=== PATIENT | female | born 1965 | race African-American/Black ===

== ENCOUNTER 2022-04-07 13:28 | Emergency (ER) | payer MEDICARE ==
[~2022-04-07] VITALS: Ht 167.6 cm; Wt 80.0 kg
[2022-04-07] MEDS ORDERED: LORAZEPAM 1MG TABLET PO ONE (14:00)
[2022-04-07 14:59] LABS: BASOPHILS % 0.5 % (0.0-2.0); EOSINOPHILS % 2.9 % (0.0-5.0); HEMATOCRIT. 37.4 % (36.0-48.0); HEMOGLOBIN. 12.4 g/dL (12.0-16.0); LYMPHOCYTES % 32.9 % (20.0-50.0); MEAN CORPUSCULAR HEMOGLOBIN 30.7 pg (28.0-32.0); MEAN CORPUSCULAR VOLUME 92.9 fL (81.0-99.0); MEAN PLATELET VOLUME 7.4 fl (7.4-10.4); MONOCYTES % 6.6 % (2.0-8.0); NEUTROPHILS % 57.1 % (40.0-76.0); PLATELET 316 x1000/uL (130-400); RED BLOOD CELL COUNT 4.03 mill/uL (4.2-5.4); RED CELL DISTRIBUTION WIDTH 13.8 % (11.6-14.6)
[2022-04-07 15:06] LABS: CHLORIDE 108 mEq/L (98-107)
[2022-04-07 15:15] LABS: ETHANOL BLOOD < 10 mg/dL
[2022-04-07 16:46] LABS: CLARITY URINE CLEAR (CLEAR); COLOR URINE YELLOW (YELLOW); KETONES URINE NEGATIVE (NEGATIVE); LEUKOCYTE ESTERASE URINE 1+ (NEGATIVE); NITRITE URINE NEGATIVE (NEGATIVE); OCCULT BLOOD URINE NEGATIVE (NEGATIVE); PROTEIN URINE TRACE (NEGATIVE); SPECIFIC GRAVITY URINE 1.013 (1.005-1.030); UROBILINOGEN URINE 0.2 E.U./dL (0.2-1.0)
[2022-04-07 17:03] LABS: *AMPHETAMINES SCREEN URINE NEGATIVE (NEGATIVE); *BARBITURATES SCREEN URINE NEGATIVE (NEGATIVE); *BENZODIAZEPINES SCREEN URINE NEGATIVE (NEGATIVE); *COCAINE SCREEN URINE NEGATIVE (NEGATIVE); CANNABINOID URINE SCREEN NEGATIVE (NEGATIVE); METHADONE URINE SCREEN NEGATIVE (NEGATIVE); OPIATES URINE SCREEN NEGATIVE (NEGATIVE); PHENCYCLIDINE URINE SCREEN NEGATIVE (NEGATIVE)
[2022-04-07] MEDS: CEPHALEXIN 250MG CAPSULE PO SCH (19:10)
[2022-04-08] MEDS ORDERED: LORAZEPAM 1MG TABLET PO ONE (04:45)
[2022-04-08] MEDS ORDERED: HALOPERIDOL LACTATE 5MG/ML VIAL IM NR (05:00)
[2022-04-08 06:00] VITALS: BP 119/59
[2022-04-08] MEDS: CEPHALEXIN 250MG CAPSULE PO SCH (08:57)
== END 2022-04-08 11:43 | disposition home or self-care (01) ==
LOC: ER 13:48
DX: F32.A Depression, unspecified (principal); N39.0 Urinary tract infection, site not specified; R45.851 Suicidal ideations; R45.850 Homicidal ideations; F43.10 Post-traumatic stress disorder, unspecified; F12.10 Cannabis abuse, uncomplicated; F17.210 Nicotine dependence, cigarettes, uncomplicated; F10.129 Alcohol abuse with intoxication, unspecified; Y90.0 Blood alcohol level of less than 20 mg/100 ml; Z20.822 Contact with and (suspected) exposure to COVID-19; Z59.00 Homelessness unspecified
CPT/HCPCS: 36415; 80053; 80305; 80320; 81003; 85025; 87426; 99285; C9803; J1630; G0480

== ENCOUNTER 2022-04-09 19:36 | Emergency (ER) | payer BC, MEDICARE ==
[~2022-04-09] VITALS: Ht 170.2 cm; Wt 68.0 kg
[2022-04-09] MEDS ORDERED: DIPHENHYDRAMINE 50MG/ML VIAL IM STA (21:53)
[2022-04-09] MEDS ORDERED: LORAZEPAM 2MG/ML CPJ IM STA (21:53)
[2022-04-09] MEDS ORDERED: OLANZAPINE 10 MG/VIAL IM STA (21:53)
[2022-04-09 22:07] LABS: BASOPHILS % 0.6 % (0.0-2.0); EOSINOPHILS % 2.1 % (0.0-5.0); LYMPHOCYTES % 44.7 % (20.0-50.0); MEAN CORPUSCULAR HEMOGLOBIN 30.5 pg (28.0-32.0); MEAN CORPUSCULAR VOLUME 93.8 fL (81.0-99.0); MEAN PLATELET VOLUME 7.5 fl (7.4-10.4); NEUTROPHILS % 44.6 % (40.0-76.0); PLATELET 281 x1000/uL (130-400); RED BLOOD CELL COUNT 3.94 mill/uL (4.2-5.4); RED CELL DISTRIBUTION WIDTH 13.8 % (11.6-14.6)
[2022-04-09 22:12] LABS: CHLORIDE 106 mEq/L (98-107); CLARITY URINE CLEAR (CLEAR); COLOR URINE YELLOW (YELLOW); KETONES URINE NEGATIVE (NEGATIVE); LEUKOCYTE ESTERASE URINE TRACE (NEGATIVE); NITRITE URINE NEGATIVE (NEGATIVE); OCCULT BLOOD URINE NEGATIVE (NEGATIVE); PROTEIN URINE NEGATIVE (NEGATIVE); SPECIFIC GRAVITY URINE 1.014 (1.005-1.030); UROBILINOGEN URINE 0.2 E.U./dL (0.2-1.0)
[2022-04-09 22:21] LABS: ETHANOL BLOOD < 10 mg/dL
[2022-04-09 22:23] LABS: *AMPHETAMINES SCREEN URINE NEGATIVE (NEGATIVE); *BARBITURATES SCREEN URINE NEGATIVE (NEGATIVE); *BENZODIAZEPINES SCREEN URINE NEGATIVE (NEGATIVE); *COCAINE SCREEN URINE NEGATIVE (NEGATIVE); CANNABINOID URINE SCREEN NEGATIVE (NEGATIVE); METHADONE URINE SCREEN NEGATIVE (NEGATIVE); OPIATES URINE SCREEN NEGATIVE (NEGATIVE); PHENCYCLIDINE URINE SCREEN NEGATIVE (NEGATIVE)
[2022-04-10 00:22] LABS: CHLORIDE 108 mEq/L (98-107)
[2022-04-10] MEDS ORDERED: OLANZAPINE 5MG TABLET ODT PO PRN (11:15)
[2022-04-10] MEDS ORDERED: HALOPERIDOL LACTATE 5MG/ML VIAL IM ONE (15:30)
[2022-04-10] MEDS ORDERED: LORAZEPAM 2MG/ML CPJ IM ONE (15:30)
[2022-04-10 17:56] VITALS: BP 139/74
[2022-04-10] MEDS ORDERED: RISPERIDONE 1MG TABLET PO SCH (21:00)
[2022-04-10] MEDS ORDERED: DIVALPROEX SODIUM 500MG DR TABLET PO SCH (21:00)
== END 2022-04-10 18:00 | disposition short-term general hospital (02) ==
LOC: ER 19:36
DX: R45.851 Suicidal ideations (principal); R45.850 Homicidal ideations; R45.1 Restlessness and agitation; F20.9 Schizophrenia, unspecified; F32.9 Major depressive disorder, single episode, unspecified; F17.200 Nicotine dependence, unspecified, uncomplicated; F12.10 Cannabis abuse, uncomplicated; Z86.59 Personal history of other mental and behavioral disorders; Z20.822 Contact with and (suspected) exposure to COVID-19
CPT/HCPCS: 36415; 80048; 80053; 80305; 80307; 80320; 80329; 81003; 85025; 87426; 96372; 99285; C9803; J1200; J1630; J2060; J3490; G0480